=== PATIENT | male | born 1995 | race Caucasian/White ===

== ENCOUNTER 2017-02-11 18:52 | Emergency (ER) | payer OTHER ==
[2017-02-11 18:59] VITALS: BP 127/59; PULSE 79; RESP 16; TEMP 98.1; O2SAT 95
--- NOTE | 2017-02-11 19:34 | UCPHY ---
H & P Time Seen by Provider: 02/11/17 19:19 Patient Type: New HPI/ROS: CHIEF COMPLAINT: Right eye pink HISTORY OF PRESENT ILLNESS: The patient is a 21 year old male presenting with pink coloring in his right eye that he woke up with. The patient reports his other 4 roommates and their girlfriends currently have pink eye. He states he woke up this morning with eye discharge and redness. His eye has remained watery throughout the day, nonpurulent, Within the past 24 hours he has developed nasal drainage and stuffiness, but no preauricular nodes. He denies cough, sore throat, or fever. The patient is leaving for [place] tomorrow and is concerned his symptoms may worsen. no contacts No grinding No glasses Travelin to [place] in 30 hours. REVIEW OF SYSTEMS: Constitutional: No fever, no chills. Eyes: See above. ENT: No sore throat. Skin: No rashes. Neurological: No headache. Past Medical/Surgical History: Denies. Social History: Current student. Smoking Status: Never smoked Physical Exam: General Appearance: Alert, no distress. Afebrile. Normal phonation. No respiratory distress. No photosensitive. Eyes: Pupils equal and round no pallor or injection. No icterus. Lids withiout changes. No ptosis. Mild erythema of bulbar and eyelid conjunctival surface without flare or limbal predominence. No spasm or pain with light. No preauricular nodes. Slit Lamp: Deep, clear quiet anterior chamber without cells or flare. No hyphema or hypopion. No uptake with fluourescein. ENT, Mouth: Mucous membranes moist. Pharynx without erythema or exudate. TM Clear. Neck: No adenopathy. Supple. Skin: Warm and dry, no rashes. Psych: Calm. Constitutional: Initial Vital Signs Temperature (C) 36.7 C 02/11/17 18:58 Heart Rate 79 02/11/17 18:58 Respiratory Rate 16 02/11/17 18:58 Blood Pressure 127/59 H 02/11/17 18:58 O2 Sat (%) 95 02/11/17 18:58 O2 Delivery Mode Room Air Allergies/Adverse Reactions: No Known Allergies Allergy (Unverified 02/11/17 18:57) Home Medications: Medication Instructions Recorded Polymyxin B Sulf/Trimethoprim 10 ml OP QID #0 drops 02/11/17 [Polymyxin B-Tmp Eye Drops] Wellbutrin 100mg (*) 02/11/17 Medical Decision Making ED Course/Re-evaluation: The patient presents with right eye redness and drainage. The patient states his roommates all have conjunctivitis. He is concerned he may have come in contact with the virus. The patient is leaving tomorrow for [place] and is worried is symptoms may worsen or not improve. A slitlamp examination was performed. Patient does not have a corneal abrasion. I have prescribed the patient polymyxin drops to use if his symptoms do not improve. Differential Diagnosis: Differential diagnosis includes but is not limited to: Viral Conjunctiivtis, bacterial, retained FB, early reiters, eraly galucoma. Departure - Departure Disposition: Home, Routine, Self-Care Clinical Impression: Conjunctivitis due to Adenovirus Condition: Good Instructions: Conjunctivitis (ED) Additional Instructions: There is no need to start the eye drops at this point in time. However if the discharge becomes much more than you will need to start them as follows: Polysporin Opthalmic 2 drops four times daily for 10 days. You have been referred to the money market dealer primary care physician. If you continue to have symptoms, please followup with this physician. Referrals: Chda Esposito MD [Medical Doctor] - As per Instructions Prescriptions: Polymyxin B Sulf/Trimethoprim [Polymyxin B-Tmp Eye Drops] 10 ml OP QID #0 drops - PQRS PQRS Measurement: NA Report Scribed for: Alton Leung Report Scribed by: Zoie Awan Date of Report: 02/11/17 Time of Report: 19:40
[2017-02-11] MEDS ORDERED: POLYMYXIN B SULFATE/TMP 10 ML OPHT.BTL ONE (19:48)
== END 2017-02-11 19:54 | disposition home or self-care (01) ==
LOC: CED 18:52
DX: H10.9 Unspecified conjunctivitis (principal)
CPT/HCPCS: 99203-PO; G0463-PO